=== PATIENT | female | born 1945 | race Two or more races ===

== ENCOUNTER 2017-11-23 19:34 | Inpatient (IN) | payer OTHER ==
[~2017-11-23] VITALS: Ht 142.2 cm; Wt 61.8 kg
[~2017-11-23 19:34] MED LIST: CALC0.25; HYDR12.527; LEVO50TA53; LISI-646; METF-372
[2017-11-23 20:42] LABS: Basophils # (auto) 0.1 uL; Basophils % (auto) 0.9 % (0.0-2.0); Eosinophils # (auto) 0.2 uL; Eosinophils % (auto) 2.1 % (0.0-7.0); Hematocrit 36.7 % (36.0-46.0); Hemoglobin 12.1 g/dL (12.2-16.2); Lymphocytes # (auto) 2.1 uL; Lymphocytes % (auto) 26.2 % (10.0-50.0); Mean Corpuscular Hemoglobin 29.8 pg (28.0-32.0); Mean Corpuscular Volume 90.3 fL (80.0-100.0); Monocytes # (auto) 0.6 uL; Monocytes % (auto) 7.3 % (0.0-12.0); Neutrophils # (auto) 5.2 uL; Neutrophils % (auto) 63.5 % (37.0-80.0); Nucleated Red Blood Cells % 0.1 %; Platelet Count (auto) 280 10^3/uL (140-450); Red Blood Cells 4.07 10^6/uL (4.0-5.20); Red Cell Distribution Width 13.9 % (11.8-14.3); White Blood Cell 8.2 10^3/uL (4.4-10.8)
[2017-11-23 20:54] LABS: Albumin 3.7 g/dL (3.4-5.0); BUN/Creatinine Ratio 25.5; Calcium 10.4 mg/dL (8.5-10.1); Potassium 3.5 mmol/L (3.5-5.1); Salicylate < 1.7 mg/dL (2.8-20.0)
[2017-11-23 20:56] LABS: Acetaminophen < 2.0 ug/mL (10-30)
[2017-11-23 20:57] LABS: Bilirubin, Total 0.5 mg/dL (0.2-1.0); Total Protein 7.5 g/dL (6.4-8.2)
[2017-11-23 22:10] LABS: Urine Bacteria FEW /hpf (None Seen); Urine Blood TRACE /uL (Negative); Urine Specific Gravity 1.007 (1.001-1.035); Urine WBC 1 /hpf (0 - 5)
[2017-11-23 22:13] LABS: Alcohol, Urine < 3.0 mg/dL (0-5); Amphetamine Screen, Urine NEGATIVE (NEGATIVE); Barbiturate Scree,Urine NEGATIVE (NEGATIVE); Benzodiazephine Screen, Urine NEGATIVE (NEGATIVE); Cannabinoid Screen, Urine NEGATIVE (NEGATIVE); Cocaine Screen, Urine NEGATIVE (NEGATIVE); Opiate Scree,Urine NEGATIVE (NEGATIVE); Phencyclidine Screen, Urine NEGATIVE (NEGATIVE)
[2017-11-23] MEDS ORDERED: cloNIDine HCL 0.1 MG TAB ONE (23:46)
[2017-11-24] VITALS (71 sets, daily range): BP systolic 89–195; BP diastolic 46–116
[2017-11-24] MEDS ORDERED: cloNIDine HCL 0.1 MG TAB PO ONE
[2017-11-24] MEDS ORDERED: ONDANSETRON HCL 4 MG/2 ML VIAL IV PRN (01:15)
[2017-11-24] MEDS ORDERED: HYDROcodone-ACET 5/325MG TAB PO PRN (01:15)
[2017-11-24] MEDS ORDERED: ACETAMINOPHEN 500 MG TAB PO PRN (01:15)
[2017-11-24] MEDS: DOPamine 1600MCG/ML D5W 250 ML IV SCH (02:00)
[2017-11-24] MEDS ORDERED: ATROPINE SULF 0.5 MG/5ML SYR IV ONE (02:30)
[2017-11-24 03:51] LABS: Basophils # (auto) 0 uL; Basophils % (auto) 0.7 % (0.0-2.0); Eosinophils # (auto) 0.2 uL; Eosinophils % (auto) 2.5 % (0.0-7.0); Hematocrit 39.1 % (36.0-46.0); Lymphocytes # (auto) 1.4 uL; Lymphocytes % (auto) 22.3 % (10.0-50.0); Mean Corpuscular Hemoglobin 29.9 pg (28.0-32.0); Mean Corpuscular Hgb Conc. 33.3 g/dL (32.0-36.0); Mean Corpuscular Volume 89.8 fL (80.0-100.0); Monocytes # (auto) 0.4 uL; Monocytes % (auto) 6.4 % (0.0-12.0); Neutrophils # (auto) 4.4 uL; Neutrophils % (auto) 68.1 % (37.0-80.0); Platelet Count (auto) 258 10^3/uL (140-450); Red Blood Cells 4.35 10^6/uL (4.0-5.20); Red Cell Distribution Width 13.9 % (11.8-14.3); White Blood Cell 6.5 10^3/uL (4.4-10.8)
[2017-11-24 04:07] LABS: BUN/Creatinine Ratio 22.6; Calcium 10.1 mg/dL (8.5-10.1); Potassium 3.2 mmol/L (3.5-5.1)
[2017-11-24] MEDS ORDERED: POTASSIUM CHL 20 Meq TABLET PO ONE (05:30)
[2017-11-24] MEDS: LEVOTHYROXINE SODIUM 50 MCG TAB PO SCH (06:45)
[2017-11-24] MEDS ORDERED: MEMANTINE HCL 5 MG TAB PO SCH (10:00)
[2017-11-24] MEDS ORDERED: LISINOPRIL 10 MG TAB PO ONE (13:15)
[2017-11-24] MEDS ORDERED: ENALAPRILAT 1.25 MG/ML-1ML VIAL IV PRN (13:15)
[2017-11-24] MEDS ORDERED: hydrALAZINE HCL 20 MG/ML VL IV PRN (13:15)
[2017-11-24] MEDS ORDERED: ISOPROTERENOL HCL INJECTION 1 MG in D5W 5% 250 ML IV SCH (15:46)
[2017-11-24] MEDS ORDERED: ISOPROTERENOL HCL INJECTION 1 MG in D5W 5% 250 ML IV ONE (16:15)
[2017-11-24] MEDS: ACCU-CHEK COMFORT CURVE STRIP VI SCH ×2 (17:00→22:00)
[2017-11-24] MEDS ORDERED: DEXTROSE (50%) 50ML SYRG IV PRN (17:00)
[2017-11-24] MEDS: InsuLIN REG 1unit/0.01ml Soln (100units/ml) SC SCH ×2 (18:30→22:00)
[2017-11-25] VITALS (46 sets, daily range): BP systolic 87–197; BP diastolic 36–86
[2017-11-25 01:00] LABS: Basophils # (auto) 0 uL; Basophils % (auto) 0.6 % (0.0-2.0); Eosinophils # (auto) 0.2 uL; Eosinophils % (auto) 2.6 % (0.0-7.0); Hematocrit 37.5 % (36.0-46.0); Hemoglobin 12.6 g/dL (12.2-16.2); Lymphocytes # (auto) 1.3 uL; Lymphocytes % (auto) 18.2 % (10.0-50.0); Mean Corpuscular Hemoglobin 30.1 pg (28.0-32.0); Mean Corpuscular Hgb Conc. 33.5 g/dL (32.0-36.0); Mean Corpuscular Volume 89.7 fL (80.0-100.0); Monocytes # (auto) 0.4 uL; Monocytes % (auto) 6.2 % (0.0-12.0); Neutrophils # (auto) 5.2 uL; Neutrophils % (auto) 72.4 % (37.0-80.0); Platelet Count (auto) 262 10^3/uL (140-450); Red Blood Cells 4.18 10^6/uL (4.0-5.20); White Blood Cell 7.2 10^3/uL (4.4-10.8)
[2017-11-25 01:12] LABS: BUN/Creatinine Ratio 27.6; Calcium 10.1 mg/dL (8.5-10.1); Potassium 3.6 mmol/L (3.5-5.1)
[2017-11-25] MEDS: LEVOTHYROXINE SODIUM 50 MCG TAB PO SCH (06:39)
[2017-11-25] MEDS: InsuLIN REG 1unit/0.01ml Soln (100units/ml) SC SCH ×4 (06:40→23:30)
[2017-11-25] MEDS: ACCU-CHEK COMFORT CURVE STRIP VI SCH ×4 (06:40→23:17)
[2017-11-25] MEDS ORDERED: NITROGLYCERIN 2% OINT 1GM PKG TD ONE (06:45)
[2017-11-25] MEDS ORDERED: LISINOPRIL 10 MG TAB PO SCH (10:00)
[2017-11-25] MEDS: DOPamine 1600MCG/ML D5W 250 ML IV SCH (10:46)
[2017-11-26 05:00] VITALS: BP 129/55
[2017-11-26] MEDS: InsuLIN REG 1unit/0.01ml Soln (100units/ml) SC SCH ×3 (06:28→16:43)
[2017-11-26] MEDS: ACCU-CHEK COMFORT CURVE STRIP VI SCH ×3 (06:28→16:43)
[2017-11-26] MEDS: LEVOTHYROXINE SODIUM 50 MCG TAB PO SCH (06:29)
[2017-11-26 07:27] VITALS: BP 137/55
[2017-11-26 12:55] VITALS: BP 116/40
== END 2017-11-26 17:58 | disposition home or self-care (01) | DRG 918 ==
LOC: ER 19:34 → TELE 19:35 → ICU WEST 11-24 03:05 → TELE-WESTW 11-25 20:33
PROVIDERS: ADMIT Nurse Practitioner Family; ATTEND Internal Medicine Geriatric Medicine
DX: T43.8X1A Poisoning by other psychotropic drugs, accidental (unintentional), initial encounter (principal); E11.9 Type 2 diabetes mellitus without complications; G30.9 Alzheimer's disease, unspecified; F02.80 Dementia in other diseases classified elsewhere, unspecified severity, without behavioral disturbance, psychotic disturbance, mood disturbance, and anxiety; E03.9 Hypothyroidism, unspecified; I16.1 Hypertensive emergency; I11.9 Hypertensive heart disease without heart failure; N28.9 Disorder of kidney and ureter, unspecified; I49.3 Ventricular premature depolarization; E78.5 Hyperlipidemia, unspecified; Z79.899 Other long term (current) drug therapy; Z90.49 Acquired absence of other specified parts of digestive tract; Y92.89 Other specified places as the place of occurrence of the external cause
CPT/HCPCS: 36415; 71045; 80048; 80053; 80307; 80329; 81001; 82962; 83036; 83735; 84443; 85025; 87081; 93005; 93306; 96365; 96375; 97163; J1815; J7060